=== PATIENT | male | born 1965 | race Caucasian/White ===

== ENCOUNTER 2016-04-22 10:53 | Day surgery (SDC) | payer BC ==
[~2016-04-22] VITALS: Ht 170.2 cm; Wt 90.1 kg
[2016-04-22 11:27] VITALS: Ht 170.2 cm; Wt 90.1 kg
[2016-04-22] MEDS ORDERED: ASPI-664 PO (11:40)
[2016-04-22] MEDS ORDERED: HYDR500C3 PO (11:40)
[2016-04-22] MEDS ORDERED: CITA20TA6 PO (11:40)
[2016-04-22] MEDS ORDERED: ESOM20CA PO (11:40)
[2016-04-22] MEDS ORDERED: METF500T4 PO (11:40)
[2016-04-22] MEDS ORDERED: LORA0.5T PO (11:40)
[2016-04-22 11:54] VITALS: BP 115/65; PULSE 60; RESP 16
[2016-04-22] MEDS ORDERED: PROPOFOL 40 ML ONE (12:12)
[2016-04-22 12:35] VITALS: BP 100/61; RESP 20
--- NOTE | 2016-04-22 13:22 | GILP ---
DATE OF PROCEDURE: 04/22/2016 NAME OF PROCEDURE: Esophagogastroduodenoscopy and biopsy. SURGEON: Jose Horta MD PREOPERATIVE DIAGNOSIS: Abdominal pain. POSTOPERATIVE DIAGNOSES: 1. Hiatal hernia. 2. Gastroesophageal reflux disease. 3. Gastritis with erosions. 4. Gastric mucosal biopsies were taken for Helicobacter pylori test. INDICATION FOR THE PROCEDURE: Mr. Jake Cordoba is a 50-year-old male patient who was complaining of upper abdominal pain not responding to therapy. The patient was scheduled for endoscopic examinati on for further evaluation. The procedure and possible complications are well explained to the patient. The patient understood and consented to the procedure. DESCRIPTION OF PROCEDURE: Under the influence of anesthesia, the gastroscope was carefully introduc ed into the esophagus and under direct vision, it was advanced to the stomach and through the pyloru s into the duodenal bulb and descending duodenum. FINDINGS: ESOPHAGUS: The patient had hiatal hernia and gastroesophageal reflux disease. STOMACH: He had gastritis with erosions. Gastric mucosal biopsies were taken for H. pylori test. DUODENUM: Normal. He tolerated the procedure very well, and there was no complication from the procedure. The entire procedure, he was awake with stable vital signs, and he was discharged home to the care of his famil y. IMPRESSION: Please see postoperative diagnoses. PLAN: 1. Continue Nexium. 2. Add Zantac 300 mg p.o. at bedtime. 3. Await H. pylori test report. Dictated By: JOSE CONRAD/TYSON Conf#: [id number] DID#: [id number]
== END 2016-04-22 13:19 | disposition home or self-care (01) ==
LOC: GIL 10:53
PROVIDERS: ATTEND Internal Medicine Gastroenterology
DX: K44.9 Diaphragmatic hernia without obstruction or gangrene (principal); K21.9 Gastro-esophageal reflux disease without esophagitis; K29.60 Other gastritis without bleeding; E11.9 Type 2 diabetes mellitus without complications
CPT/HCPCS: 43239; 82962; 87081; Z7610

== ENCOUNTER 2018-07-14 09:38 | Day surgery (SDC) | payer OTHER ==
[2018-07-13 16:47] VITALS: BMI 33.0
[2018-07-14] VITALS (23 sets, daily range): BP systolic 81–117; BP diastolic 36–71; PULSE 76–102; RESP 14–23; Ht 170.2 cm; Wt 96.4 kg
[~2018-07-14] VITALS: Ht 170.2 cm; Wt 96.4 kg
[~2018-07-14 09:38] MED LIST: ASPI-817 PO; CEFAZOLIN 2 GM/50 ML (PMX) 50 ML IVPB ONE; CEFAZOLIN 2 GM/50 ML (PMX) 50 ML IVPB SCH; CITA20TA8 PO; EPINEPHrine 0.1 MG/ML SYG ONE; ESOM20CA PO; HYDR500C3 PO; LIDOCAINE 2% (SDV) 5 ML INJ ONE; LORA0.5T PO; METF-849 PO; ROCURONIUM 50 MG INJ ONE; SOD CHLORIDE 0.9% 1,000 ML IV ONE; SOD CHLORIDE 0.9% 1,000 ML IV SCH
[2018-07-14] MEDS ORDERED: RANI300T PO (10:18)
[2018-07-14] MEDS ORDERED: HYDR-3025 PO (10:18)
[2018-07-14] MEDS ORDERED: ALPR0.5T6 PO (10:18)
[2018-07-14] MEDS ORDERED: CYCL5TAB PO (10:18)
[2018-07-14] MEDS ORDERED: SIMV40TA2 PO (10:18)
[2018-07-14] MEDS ORDERED: HYOS0.1297 SL (10:18)
[2018-07-14] MEDS ORDERED: ALBUTEROL 0.083% (NEB) 2.5 MG/3 ML AMP HHN PRN (10:30)
[2018-07-14] MEDS ORDERED: HYDROmorphONE 1 MG/5 ML IV SYRINGE IV PRN ×3 (10:30)
[2018-07-14] MEDS ORDERED: ACETAMINOPHEN 500 MG TAB PO ONE (10:30)
[2018-07-14] MEDS ORDERED: FENTAnyl 50 MCG/ML VIAL IV PRN ×2 (10:30)
[2018-07-14] MEDS ORDERED: DIPHENHYDRAMINE 50 MG INJ IV PRN (10:30)
[2018-07-14] MEDS ORDERED: LABETALOL HCL 20MG INJ IV PRN (10:30)
[2018-07-14] MEDS ORDERED: ONDANSETRON 4 MG INJ IV PRN ×2 (10:30→13:30)
[2018-07-14] MEDS ORDERED: MEPERIDINE 25 MG INJ IV PRN (10:30)
--- NOTE | 2018-07-14 11:39 | PREAC ---
Date/Time of Note Date/Time of Note DATE: 07/14/18 TIME: 10:08 Anesthesia Eval and Record Evaluation Time Pre-Procedure Interview DATE: 07/14/18 TIME: 10:08 Age 52 Sex male NPO: 8 hrs Preoperative diagnosis back mass Planned procedure excision of back mass Past Medical History Past Medical History: Includes (polycythemia) Endo: Diabetes Psych: Anxiety, Other (fibromyalgia) Surgery & Anesthesia Issues No known issue Meds Anticoagulation: No Beta Kris within 24 hr: No Reason Beta Kris not given: Pt. not on B-Kris Reported Medications Citalopram Hydrobromide* (Citalopram Hydrobromide*) 20 Mg Tablet, 20 MG PO DAILY, #30 TAB 04/22/16 Lorazepam* (Lorazepam*) 0.5 Mg Tablet, 0.5 MG PO Q8 PRN for ANXIETY, TAB 04/22/16 Hydroxyurea* (Hydroxyurea*) 500 Mg Capsule, 500 MG PO BID, CAP 04/22/16 Aspirin* (Aspirin* EC) 81 Mg Tablet.dr, 81 MG PO DAILY, TAB 04/22/16 Metformin* (Glucophage*) 500 Mg Tab, 500 MG PO WITH LUNCH DINNER, #60 TAB 04/22/16 Esomeprazole Mag Trihydrate (Nexium) 20 Mg Capsule.dr, 20 MG PO DAILY, #30 CAP 04/22/16 Current Medications Sodium Chloride 1,000 ml @ 75 mls/hr [id number] IV ; Start 07/14/18 at 07:00; Stop 07/14/18 at 20:19 Meds reviewed: Yes Allergies Coded Allergies: benazepril (Verified Allergy, Intermediate, 04/22/16) BREATHING PROB codeine (Verified Allergy, Intermediate, 04/22/16) BREATHING PROB Allergies Reviewed: Yes Labs/Studies Labs Reviewed: Reviewed by anesthesiologist test: N/A Pre-procedure Exam Airway: Adequate mouth opening, Adequate thyromental dist Mallampati: Mallampati II Teeth: Abnormal (missing molars, chipped upper front tooth) Lung: Normal Heart: Normal ASA Physical Status ASA physical status: 2 Emergency: None Planned Anesthetic General/MAC: ETT Pre-operative Attestations Prior to commencing anesthesia and surgery, the patient was re-evaluated, there was verification of: *The patient's identity *The results of appropriate recent lab work and preoperative vital signs *The above evaluation not changing prior to induction *Anesthetic plan, risk benefits, alternative and complications discussed with patient/family; questions answered; patient/family understands, accepts and wishes to proceed. WARREN BRITT July 14, 2018 11:39
[2018-07-14] MEDS ORDERED: PROPOFOL 200 ML ONE (12:10)
[2018-07-14] MEDS ORDERED: MIDAZOLAM 1 MG/ML 2 ML INJ ONE (12:11)
[2018-07-14] MEDS ORDERED: FENTAnyl 50 MCG/ML VIAL ONE (12:11)
[2018-07-14] MEDS ORDERED: BUPIVACAINE 0.25%/EPI (SDV) 30 ML INJ ONE (12:30)
[2018-07-14] MEDS ORDERED: LIDOCAINE 1%/EPI (1:100,000) (MDV) 20 ML ONE (12:30)
[2018-07-14] MEDS ORDERED: VASOPRESSIN 20 UNITS INJ ONE ×2 (12:33→12:38)
[2018-07-14] MEDS ORDERED: CEFAZOLIN 1 GM INJ ONE (12:38)
[2018-07-14] MEDS ORDERED: DEXAMETHASONE 4 MG/ML 5 ML INJ ONE (12:39)
[2018-07-14] MEDS ORDERED: ONDANSETRON 4 MG INJ ONE (12:39)
[2018-07-14] MEDS ORDERED: SUGAMMADEX SODIUM 200 MG/2 ML VIAL IV ONE (12:47)
[2018-07-14] MEDS ORDERED: LACTATED RINGER'S 1,000 ML IV SCH ×2 (13:03)
[2018-07-14] MEDS ORDERED: ALBUTEROL 0.083% (NEB) 2.5 MG/3 ML AMP ONE (13:05)
[2018-07-14] MEDS ORDERED: ALBUTEROL HFA 8 GM INHALER ONE (13:08)
[2018-07-14] MEDS ORDERED: PROVENTIL HFA 6.7GM INHALER ONE (13:08)
[2018-07-14] MEDS ORDERED: MEPERIDINE 100 MG INJ ONE (13:13)
--- NOTE | 2018-07-14 13:15 | SIPON ---
Date/Time of Note Date/Time of Note DATE: 07/14/18 TIME: 13:12 Operative Report Preoperative Diagnosis Subcutaneous mass mid back off the midline about 3 to 4 cm on the left side. Postoperative Diagnosis The same Operation/Procedure Performed Removal of the mass. Surgeon see signature line showroom sales assistant None Anesthesia: general Estimated blood loss: none Transfusion Required none Specimen Yes this patient is a specimen. Likely lipoma was fragmented into pieces were sent for pathology evaluation. Grafts/Implants none Complications none TRENT NGUYỄN MD July 14, 2018 13:15
[2018-07-14] MEDS ORDERED: NALOXONE (0.4 MG/ML) INJ ONE (13:29)
[2018-07-14] MEDS ORDERED: ACETAMINOPHEN 325 MG TAB PO PRN (13:30)
--- NOTE | 2018-07-14 14:00 | PAC ---
Date/Time of Note Date/Time of Note DATE: 07/14/18 TIME: 13:59 Post-Anesthesia Notes Post-Anesthesia Note Last documented vital signs Vital Signs Date Temp Pulse Resp B/P Pulse Ox O2 O2 Flow FiO2 Time (MAP) Delivery Rate 07/14/18 97.7 97.2 76 97 16 18 117/71 98 100 face 11:06 134 (86) 103 mask 8L Activity: WNL Respiratory function: WNL Cardiovascular function: WNL Mental status: Baseline Pain reasonably controlled: Yes Hydration appropriate: Yes Nausea/Vomiting absent: Yes WARREN BRITT July 14, 2018 14:00
--- NOTE | 2018-07-14 17:36 | OPR ---
DATE OF OPERATION: 07/14/2018 PREOPERATIVE DIAGNOSIS: Subcutaneous mass, mid back, paraspinal. POSTOPERATIVE DIAGNOSIS: Subcutaneous mass, mid back, paraspinal; pending pathology report. PROCEDURE: Excision of the mass from the subcutaneous tissue. SURGEON: Tino Clancy MD CLIENT TECHNOLOGIES SPECIALIST: None. ANESTHESIA: General. ANESTHESIOLOGIST: Candis Sims CRNA COMPLICATIONS: None. ESTIMATED BLOOD LOSS: Nil. SPECIMEN: The mass which appeared to be lipoma and removed in two pieces were completely sent for pathologic evaluation. INDICATION: This is a 52-year-old gentleman who has been feeling a mass in his mid back for about a year and recently has been growing bigger and has been bothering him. He was advised by his internal medicine physician to have it removed because he has been under treatment for polycythemia and he was told that medicine that he has been using for polycythemia vera may cause these nodules or lumps. In any case, the patient was seen and wanted the operation. Possible complications including recurrence of the mass, infection, scar formation and pain were discussed with the patient and he understood and agreed and wanted the operation, so he signed a consent and we will proceed with the procedure. DESCRIPTION OF PROCEDURE: The patient was brought to the operating room, was placed on operating table in supine position. Anesthesia was induced by the anesthesiologist. A 2 grams of Ancef was given IV. Time-out was called. The patient was identified. Type of procedure, site of procedure was identified. The patient's position was changed to the right down decubitus and the left side up position, was secured and the pressure spots were padded. Then, the area of the operation was shaved and prepped and draped with Betadine in sterile fashion. All through the operation, a mixture of 20 mL of Marcaine 0.5% with epinephrine and 30 mL of 1% lidocaine with epinephrine was used for local anesthesia, a total of 40 mL was used. A skin incision was made longitudinally paraspinal with 15-blade and carried down through subcutaneous tissue. Incision was about 5 cm. Eventually, the anterior aspect of the mass was identified. Gradually, it was dissected off the surrounding tissues using a hemostat clamp, dissected free from the surrounding and also electrocautery was used. Eventually, the whole mass which appeared to be that the lipoma was delivered through the incision and was sent for pathologic evaluation. Wound was irrigated with normal saline solution. Hemostasis was completely achieved. Then, wound was closed in 1 layer using #2-0 Prolene. Several interrupted vertical mattress sutures were used. At the end, dry dressing was applied. The patient tolerated procedure well. At the end of the procedure, instrument, sponge and needle count was correct. The patient was changed to supine position and extubated and transferred to recovery room in stable condition. Dictated By: TINO CASANOVA/TYSON Conf#: [id number] DID#: [id number] [email or web address]
== END 2018-07-14 15:28 | disposition home or self-care (01) ==
LOC: SDS 09:38
DX: D17.1 Benign lipomatous neoplasm of skin and subcutaneous tissue of trunk (principal); E11.9 Type 2 diabetes mellitus without complications
CPT/HCPCS: 11404; 82962; 88307; J0171; J0690; J1100; J2175; J2250; J2310; J2405; J3010; Z7610